=== PATIENT | female | born 1990 | race Caucasian/White ===

== ENCOUNTER 2024-09-10 11:27 | Emergency (ER) | payer BC ==
[~2024-09-10] VITALS: Ht 165.1 cm; Wt 73.9 kg
[2024-09-10 11:44] VITALS: BP 103/72; PULSE 107; RESP 18; TEMP 97.8; O2SAT 97
== END 2024-09-10 14:19 | disposition home or self-care (01) ==
LOC: ER 11:28
DX: J22 Unspecified acute lower respiratory infection (principal)
CPT/HCPCS: 71045; 99283